=== PATIENT | female | born 1980 | race Caucasian/White ===

== ENCOUNTER 2017-04-02 20:52 | Inpatient (IN) | payer BC ==
[~2017-04-02] VITALS: Ht 172.7 cm; Wt 55.6 kg
[~2017-04-02 20:52] MED LIST: ABILIFY 10MG TA10 MG PO; ACTIGALL 300MG300 MG PO; ALDOMET 250MG250 MG PO; AMLOPIDINE PO; CELEXA 20MG20 MG/TAB PO; HCTZ 25MG25 MG PO; HUMALOG100 U/ML SC; LANTUS100 U/ML SC; LISINOPRIL10 MG PO; MACRODANTIN50 MG PO; MAXZIDE; MOTRIN 600600 MG/TAB PO; NORCO 325 MG-51 TAB PO; NORVASC 5MG5 MG/TAB PO; PERCOCET 325 MG1 TA2 PO; PRENATAL VITAMI1 TA5 PO; PRILOTC PO; SYNTHROID0.1 MG/TAB PO
[2017-04-02] MEDS ORDERED: LEVEMIR FLEX100 U/ML SQ (21:12)
[2017-04-02] MEDS ORDERED: LEXAPRO20 MG PO (21:13)
[2017-04-02 21:36] LABS: BASO % 0.3 % (0.0-2.0); EOS % 0.6 % (0-4.0); GRAN # 4.2 (1.4-6.5); GRAN % 65.9 % (42.2-75.2); HEMOGLOBIN 12.6 g/dl (12.5-16.0); LYMPH # 1.6 (1.2-3.4); LYMPH % 24.4 % (20.0-51.0); MEAN CELL VOLUME 92 fl (80.0-100.0); MEAN CORPUSCULAR HEMOGLOBIN 33 pg (27.0-31.0); MEAN CORPUSCULAR HGB CONC 36 g/dl (33.0-37.0); MEAN PLATELET VOLUME 9.2 fl (7.4-10.4); MONO # 0.5 (0.1-0.6); MONO % 8.2 % (1.7-9.3); PLATELET COUNT 164 K/mm3 (130-400); RED BLOOD COUNT 3.77 M/mm3 (4.10-5.30); REDCELL DISTRIBUTION WIDTH-CV 14.2 % (11.5-14.5); WHITE BLOOD COUNT 6.4 K/mm3 (4.8-10.8)
[2017-04-02 21:42] LABS: ADJUSTED CALCIUM 8.6 mg/dL (8.4-10.2); ALANINE AMINOTRANSFERASE 64 U/L (9-52); ALBUMIN 3.5 gm/dL (3.5-5.0); ALKALINE PHOSPHATASE 418 U/L (50-136); ANION GAP 18 mmol/L (7-16); BILIRUBIN,TOTAL 2.6 mg/dL (0.0-1.0); CALCIUM 8.2 mg/dL (8.4-10.2); CARBON DIOXIDE 30 mmol/L (22-30); CREATININE, serum 0.43 mg/dL (0.52-1.25); GLUCOSE 219 mg/dL (74-106); LIPASE 215 U/L (23-300); MAGNESIUM 1.8 mg/dL (1.6-2.3); SODIUM 130 mmol/L (137-145); TOTAL PROTEIN 6.5 gm/dL (6.4-8.2)
[2017-04-02 21:44] LABS: HEMATOCRIT 34.7 % (37.0-47.0)
[2017-04-02 21:48] LABS: BLOOD UREA NITROGEN < 2 mg/dL (7-17)
[2017-04-02 21:49] LABS: CHLORIDE 82 mmol/L (98-107); POTASSIUM 1.3 mmol/L (3.4-5.0)
[2017-04-02 22:42] LABS: ARTERIAL BLD GAS O2 SATURATION 64.7 % (92-100); ARTERIAL BLD GAS TCO2 CT 32.4; ARTERIAL BLOOD GAS BASE EXCESS 8.1 (-2-2); ARTERIAL BLOOD GAS HCO3 31.2 meq/L (22-26); ARTERIAL BLOOD GAS PHT 7.53 C (7.35-7.45); ARTERIAL BLOOD GAS pH 7.53 (7.35-7.45); OXYHEMOGLOBIN 62.9 %
[2017-04-02 22:47] LABS: ALLEN TEST YES; ALLENS TEST RESULT PASS; ARTERIAL BLOOD GAS PO2 32.6 mmHg (80-100); ARTERIAL BLOOD GAS PO2T 32.6 (80-100); ATS? YES
[2017-04-02 23:30] LABS: PH 7 (5-8); URINE APPEARANCE Clear; URINE BACTERIA None Seen /hpf; URINE BILIRUBIN Negative (NEGATIVE); URINE BLOOD 2+ (NEGATIVE); URINE COLOR Yellow; URINE GLUCOSE Negative (NEGATIVE); URINE KETONE 1+ (NEGATIVE); URINE RBC 0-2 /hpf; URINE UROBILINOGEN Negative (NEGATIVE)
[2017-04-03] VITALS (1077 sets, daily range): BP systolic 107–124; BP diastolic 57–89; PULSE 87–97; TEMP 96.7–97.2; O2SAT 87–100
[2017-04-03 00:02] LABS: INR 1.3 (0.8-3.0); PROTHROMBIN TIME 14.4 SECONDS (9.7-12.8)
[2017-04-03 00:04] LABS: PARTIAL THROMBOPLASTIN TIME 32.1 SECONDS (26.0-37.0)
[2017-04-03 03:47] LABS: ANION GAP 10 mmol/L (7-16); CALCIUM 7.6 mg/dL (8.4-10.2); CARBON DIOXIDE 30 mmol/L (22-30); CHLORIDE 93 mmol/L (98-107); GLUCOSE 194 mg/dL (74-106); SODIUM 133 mmol/L (137-145)
[2017-04-03 03:50] LABS: BLOOD UREA NITROGEN < 2 mg/dL (7-17)
[2017-04-03 03:52] LABS: POTASSIUM 1.7 mmol/L (3.4-5.0)
[2017-04-03 04:58] LABS: AMPHETAMINE URINE NEGATIVE; BARBITURATES URINE NEGATIVE; BENZODIAZEPINES URINE NEGATIVE; BUPRENORPHINE URINE NEGATIVE; METHADONE URINE NEGATIVE; OPIATES URINE POSITIVE; OXYCODONE URINE NEGATIVE; PHENCYCLIDINE URINE NEGATIVE; PROPOXYPHENE URINE NEGATIVE; THC CANNABINOIDS URINE NEGATIVE
[2017-04-03 05:43] LABS: BASO % 0.4 % (0.0-2.0); EOS # 0.1 (0.0-0.7); EOS % 1.3 % (0-4.0); GRAN # 2.8 (1.4-6.5); GRAN % 61.7 % (42.2-75.2); LYMPH # 1.4 (1.2-3.4); LYMPH % 30.4 % (20.0-51.0); MEAN CELL VOLUME 94 fl (80.0-100.0); MEAN CORPUSCULAR HGB CONC 35 g/dl (33.0-37.0); MEAN PLATELET VOLUME 9.8 fl (7.4-10.4); MONO # 0.3 (0.1-0.6); MONO % 5.8 % (1.7-9.3); PLATELET COUNT 121 K/mm3 (130-400); RED BLOOD COUNT 3.48 M/mm3 (4.10-5.30); REDCELL DISTRIBUTION WIDTH-CV 14.8 % (11.5-14.5); WHITE BLOOD COUNT 4.5 K/mm3 (4.8-10.8)
[2017-04-03 05:45] LABS: HEMATOCRIT 32.8 % (37.0-47.0); HEMOGLOBIN 11.6 g/dl (12.5-16.0); MEAN CORPUSCULAR HEMOGLOBIN 33 pg (27.0-31.0)
[2017-04-03 05:55] LABS: ALANINE AMINOTRANSFERASE 63 U/L (9-52); ALBUMIN 3.2 gm/dL (3.5-5.0); ALKALINE PHOSPHATASE 398 U/L (50-136); ANION GAP 13 mmol/L (7-16); BILIRUBIN,TOTAL 2.2 mg/dL (0.0-1.0); CALCIUM 8.3 mg/dL (8.4-10.2); CARBON DIOXIDE 32 mmol/L (22-30); CHLORIDE 91 mmol/L (98-107); CREATININE, serum 0.44 mg/dL (0.52-1.25); GLUCOSE 223 mg/dL (74-106); SODIUM 137 mmol/L (137-145); TOTAL PROTEIN 6.4 gm/dL (6.4-8.2)
[2017-04-03 05:56] LABS: BLOOD UREA NITROGEN < 2 mg/dL (7-17)
[2017-04-03 05:58] LABS: POTASSIUM 1.6 mmol/L (3.4-5.0)
[2017-04-03 06:06] LABS: BILIRUBIN,DIRECT 1.3 mg/dL (0.0-0.4)
[2017-04-03 20:18] LABS: ANION GAP 8 mmol/L (7-16); CALCIUM 7.7 mg/dL (8.4-10.2); CARBON DIOXIDE 33 mmol/L (22-30); CREATININE, serum 0.39 mg/dL (0.52-1.25); GLUCOSE 198 mg/dL (74-106); SODIUM 129 mmol/L (137-145)
[2017-04-03 20:22] LABS: BLOOD UREA NITROGEN < 2 mg/dL (7-17)
[2017-04-03 20:23] LABS: CHLORIDE 88 mmol/L (98-107); POTASSIUM 2.2 mmol/L (3.4-5.0)
[2017-04-04] VITALS (287 sets, daily range): BP systolic 11–155; BP diastolic 59–91; PULSE 70–97; TEMP 97–99; O2SAT 85–100
[2017-04-04 05:45] LABS: ADJUSTED CALCIUM 8.8 mg/dL (8.4-10.2); ALANINE AMINOTRANSFERASE 67 U/L (9-52); ALBUMIN 3.1 gm/dL (3.5-5.0); ALKALINE PHOSPHATASE 360 U/L (50-136); ANION GAP 10 mmol/L (7-16); BILIRUBIN,TOTAL 1.9 mg/dL (0.0-1.0); CALCIUM 8.1 mg/dL (8.4-10.2); CARBON DIOXIDE 34 mmol/L (22-30); CHLORIDE 94 mmol/L (98-107); CREATININE, serum 0.39 mg/dL (0.52-1.25); GLUCOSE 98 mg/dL (74-106); MAGNESIUM 2.4 mg/dL (1.6-2.3); SODIUM 138 mmol/L (137-145); TOTAL PROTEIN 6.4 gm/dL (6.4-8.2)
[2017-04-04 05:47] LABS: BLOOD UREA NITROGEN < 2 mg/dL (7-17); POTASSIUM 2.7 mmol/L (3.4-5.0)
[2017-04-05 03:02] VITALS: BP 110/81; PULSE 92; TEMP 98.7
[2017-04-05 07:16] LABS: ADJUSTED CALCIUM 8.8 mg/dL (8.4-10.2); ALANINE AMINOTRANSFERASE 67 U/L (9-52); ALBUMIN 2.7 gm/dL (3.5-5.0); ALKALINE PHOSPHATASE 330 U/L (50-136); ANION GAP 6 mmol/L (7-16); BILIRUBIN,TOTAL 1.4 mg/dL (0.0-1.0); CALCIUM 7.8 mg/dL (8.4-10.2); CARBON DIOXIDE 31 mmol/L (22-30); CHLORIDE 97 mmol/L (98-107); CREATININE, serum 0.41 mg/dL (0.52-1.25); GLUCOSE 156 mg/dL (74-106); SODIUM 134 mmol/L (137-145); TOTAL PROTEIN 5.8 gm/dL (6.4-8.2)
[2017-04-05 07:21] LABS: BLOOD UREA NITROGEN < 2 mg/dL (7-17)
[2017-04-05 07:22] LABS: POTASSIUM 2.9 mmol/L (3.4-5.0)
[2017-04-05 07:48] LABS: INR 1.2 (0.8-3.0); PROTHROMBIN TIME 13.2 SECONDS (9.7-12.8)
[2017-04-05 09:18] VITALS: BP 103/78; PULSE 89; TEMP 97.7
[2017-04-05 12:10] VITALS: BP 100/78; PULSE 95; TEMP 97.6
[2017-04-05 16:31] VITALS: BP 100/79; PULSE 85; TEMP 98.2
[2017-04-05 20:50] VITALS: BP 109/79; PULSE 98; TEMP 98.5
[2017-04-05 23:01] VITALS: BP 103/74; PULSE 93; TEMP 98.8
[2017-04-06 02:34] VITALS: BP 99/69; PULSE 89; TEMP 98.1
[2017-04-06 07:33] LABS: ADJUSTED CALCIUM 8.9 mg/dL (8.4-10.2); ALBUMIN 2.6 gm/dL (3.5-5.0); BILIRUBIN,TOTAL 1.2 mg/dL (0.0-1.0); CALCIUM 7.8 mg/dL (8.4-10.2); CREATININE, serum 0.41 mg/dL (0.52-1.25); POTASSIUM 3.8 mmol/L (3.4-5.0); TOTAL PROTEIN 5.5 gm/dL (6.4-8.2)
[2017-04-06 08:47] VITALS: BP 101/70; PULSE 88; TEMP 97.8
[2017-04-06 12:46] VITALS: BP 115/84; PULSE 91; TEMP 97.8
[2017-04-06 15:43] LABS: PERITONEAL -POLYMORPHONUCLEAR 11.3 % (0-25); PERITONEAL FLUID RBC 0 /mm3 (0-0)
[2017-04-06 15:46] VITALS: BP 103/74; PULSE 87; TEMP 97.7
[2017-04-06 16:42] LABS: TOTAL IRON BINDING CAPACITY 217 ug/dL (265-497)
[2017-04-06 17:10] LABS: FERRITIN 89 ng/mL (6-137)
[2017-04-06 20:55] VITALS: BP 121/92; PULSE 81; TEMP 97.3
[2017-04-07] VITALS (9 sets, daily range): BP systolic 91–167; BP diastolic 65–98; PULSE 73–92; TEMP 97.4–98.4
[2017-04-07 07:07] LABS: ADJUSTED CALCIUM 9.3 mg/dL (8.4-10.2); ALBUMIN 3.4 gm/dL (3.5-5.0); BILIRUBIN,TOTAL 1.7 mg/dL (0.0-1.0); CALCIUM 8.8 mg/dL (8.4-10.2); CREATININE, serum 0.38 mg/dL (0.52-1.25)
[2017-04-07 07:12] LABS: POTASSIUM 2.9 mmol/L (3.4-5.0)
[2017-04-07 09:31] LABS: MAGNESIUM 1.8 mg/dL (1.6-2.3)
[2017-04-08 00:26] VITALS: BP 100/70; PULSE 88; TEMP 97.7
[2017-04-08 04:19] VITALS: BP 107/78; PULSE 88; TEMP 97.9
[2017-04-08 07:20] LABS: ADJUSTED CALCIUM 9.4 mg/dL (8.4-10.2); BILIRUBIN,TOTAL 1.2 mg/dL (0.0-1.0); CALCIUM 8.6 mg/dL (8.4-10.2); CREATININE, serum 0.43 mg/dL (0.52-1.25); POTASSIUM 3.4 mmol/L (3.4-5.0); TOTAL PROTEIN 6.2 gm/dL (6.4-8.2)
[2017-04-08 08:31] LABS: BASO % 0.4 % (0.0-2.0); EOS # 0.1 (0.0-0.7); EOS % 2.3 % (0-4.0); GRAN # 2.8 (1.4-6.5); GRAN % 57.6 % (42.2-75.2); LYMPH # 1.4 (1.2-3.4); LYMPH % 28.9 % (20.0-51.0); MEAN CELL VOLUME 102 fl (80.0-100.0); MEAN CORPUSCULAR HGB CONC 33 g/dl (33.0-37.0); MEAN PLATELET VOLUME 9.4 fl (7.4-10.4); MONO # 0.5 (0.1-0.6); MONO % 10.6 % (1.7-9.3); PLATELET COUNT 149 K/mm3 (130-400); RED BLOOD COUNT 3.31 M/mm3 (4.10-5.30); REDCELL DISTRIBUTION WIDTH-CV 15.7 % (11.5-14.5); WHITE BLOOD COUNT 4.8 K/mm3 (4.8-10.8)
[2017-04-08 08:32] LABS: HEMATOCRIT 33.8 % (37.0-47.0); HEMOGLOBIN 11.3 g/dl (12.5-16.0); MEAN CORPUSCULAR HEMOGLOBIN 34 pg (27.0-31.0)
[2017-04-08 08:54] VITALS: BP 107/83; PULSE 101; TEMP 98.2
[2017-04-08 10:43] VITALS: BP 110/79; PULSE 84; TEMP 97.7
[2017-04-08 13:30] LABS: ALPHA 1 ANTITRYPSIN TOTAL 213 mg/dL (())
[2017-04-08] MEDS ORDERED: FOLIC ACID 11 MG/TA1 PO (13:45)
[2017-04-08] MEDS ORDERED: LASIX 40MG TABL40 MG PO (13:45)
[2017-04-08] MEDS ORDERED: ALDACTONE 100M100 MG PO (13:45)
[2017-04-08] MEDS ORDERED: LEVSIN0.125 M1 PO (13:46)
[2017-04-08] MEDS ORDERED: THIAMINE 1100 MG/TAB PO (13:46)
[2017-04-08] MEDS ORDERED: MULTI VITAMINS1 TAB PO (13:46)
[2017-04-08] MEDS ORDERED: NAPROSYN 2250 MG/TAB PO (13:49)
[2017-05-12] MEDS ORDERED: LASIX 20MG TABL20 MG PO (15:23)
[2017-05-12] MEDS ORDERED: NOVOLOG FLEX100 U/ML SQ (15:24)
[2017-05-12] MEDS ORDERED: NEURONTIN400 MG/CAP PO (15:29)
[2017-05-12] MEDS ORDERED: CALCIUM CARBON600 M1 PO (15:30)
[2017-05-12] MEDS ORDERED: NEURONTIN600 MG/TAB PO (15:30)
[2017-05-12] MEDS ORDERED: CENA K40 MEQ/15 PO (15:31)
[2017-05-13] MEDS ORDERED: LOMOTIL 0.025 M1 TAB PO (14:21)
== END 2017-04-08 15:46 | disposition home or self-care (01) | DRG 432 ==
LOC: COL.ER 20:52 → ICU 22:58 → MEDICAL 22:58
PROVIDERS: Emergency Medicine; Family Medicine; Internal Medicine Gastroenterology; Nurse Practitioner Family
PROC: 0W9G3ZX Drainage of Peritoneal Cavity, Percutaneous Approach, Diagnostic (ICD-10-PCS; principal; 2017-04-06)
PROC: 0DBE8ZX Excision of Large Intestine, Via Natural or Artificial Opening Endoscopic, Diagnostic (ICD-10-PCS; 2017-04-07)
PROC: 0DBA8ZX Excision of Jejunum, Via Natural or Artificial Opening Endoscopic, Diagnostic (ICD-10-PCS; 2017-04-07 07:30)
DX: K70.11 Alcoholic hepatitis with ascites (principal); E43 Unspecified severe protein-calorie malnutrition; Z68.1 Body mass index [BMI] 19.9 or less, adult; E87.1 Hypo-osmolality and hyponatremia; E87.3 Alkalosis; E87.6 Hypokalemia; I10 Essential (primary) hypertension; K64.0 First degree hemorrhoids; E11.9 Type 2 diabetes mellitus without complications; F17.210 Nicotine dependence, cigarettes, uncomplicated; Z98.84 Bariatric surgery status; F10.20 Alcohol dependence, uncomplicated; Z79.4 Long term (current) use of insulin; K52.9 Noninfective gastroenteritis and colitis, unspecified
CPT/HCPCS: 99223-AI; 99232-AI; 99233-AI; 99239; J1650; J1815; J1885; J1940; J2405; J2704; J3010; J3411; J3475; J3480; J7030; Q9967

== ENCOUNTER → 2017-05-13 | Outpatient (CLI) | payer BC ==
[~2017-05-13] VITALS: Ht 172.7 cm; Wt 53.1 kg
[~2017-05-13] MED LIST changes: +ALDACTONE 100M100 MG PO; +CALCIUM CARBON600 M1 PO; +CENA K40 MEQ/15 PO; +FOLIC ACID 11 MG/TA1 PO; +LASIX 20MG TABL20 MG PO; +LASIX 40MG TABL40 MG PO; +LEVEMIR FLEX100 U/ML SQ; +LEVSIN0.125 M1 PO; +LEXAPRO20 MG PO; +LOMOTIL 0.025 M1 TAB PO; +MULTI VITAMINS1 TAB PO; +NAPROSYN 2250 MG/TAB PO; +NEURONTIN400 MG/CAP PO; +NEURONTIN600 MG/TAB PO; +NOVOLOG FLEX100 U/ML SQ; +THIAMINE 1100 MG/TAB PO
[2017-05-13 14:22] VITALS: BP 107/72; PULSE 108
== END ==
LOC: COL.RAD 13:49
DX: K70.11 Alcoholic hepatitis with ascites (principal)

== ENCOUNTER → 2017-08-10 | Outpatient (CLI) | payer BC ==
[~2017-08-10] MED LIST changes: +CYMBALTA 60MG60 MG PO
== END ==
LOC: COL.RAD 07:30
DX: Z01.812 Encounter for preprocedural laboratory examination (principal); R63.4 Abnormal weight loss; R19.4 Change in bowel habit; R19.7 Diarrhea, unspecified; Z97.5 Presence of (intrauterine) contraceptive device; Z98.84 Bariatric surgery status
CPT/HCPCS: Q9967

== ENCOUNTER 2017-08-16 22:12 | Emergency (ER) | payer BC ==
[~2017-08-16] VITALS: Ht 172.7 cm; Wt 45.2 kg
[~2017-08-16 22:12] MED LIST changes: -CYMBALTA 60MG60 MG PO
[2017-08-16 22:19] VITALS: TEMP 97.5
[2017-08-16 22:51] LABS: BASO % 0.7 % (0.0-2.0); EOS # 0.2 (0.0-0.7); EOS % 3.8 % (0-4.0); GRAN # 2.1 (1.4-6.5); GRAN % 47.2 % (42.2-75.2); HEMOGLOBIN 12.5 g/dl (12.5-16.0); LYMPH # 1.9 (1.2-3.4); LYMPH % 41.2 % (20.0-51.0); MEAN CELL VOLUME 82 fl (80.0-100.0); MEAN CORPUSCULAR HEMOGLOBIN 28 pg (27.0-31.0); MEAN CORPUSCULAR HGB CONC 34 g/dl (33.0-37.0); MEAN PLATELET VOLUME 10.5 fl (7.4-10.4); MONO # 0.3 (0.1-0.6); MONO % 6.9 % (1.7-9.3); PLATELET COUNT 183 K/mm3 (130-400); WHITE BLOOD COUNT 4.5 K/mm3 (4.8-10.8)
[2017-08-16 22:53] LABS: HEMATOCRIT 36.8 % (37.0-47.0)
[2017-08-16 23:02] LABS: ADJUSTED CALCIUM 9.3 mg/dL (8.4-10.2); ALANINE AMINOTRANSFERASE 56 U/L (9-52); ALBUMIN 4.3 gm/dL (3.5-5.0); ALKALINE PHOSPHATASE 165 U/L (50-136); ANION GAP 9 mmol/L (7-16); BILIRUBIN,TOTAL 0.7 mg/dL (0.0-1.0); BLOOD UREA NITROGEN 13 mg/dL (7-17); CALCIUM 9.5 mg/dL (8.4-10.2); CARBON DIOXIDE 25 mmol/L (22-30); CHLORIDE 106 mmol/L (98-107); CREATININE, serum 0.54 mg/dL (0.52-1.25); GLUCOSE 252 mg/dL (74-106); SODIUM 139 mmol/L (137-145); TOTAL PROTEIN 7.2 gm/dL (6.4-8.2)
[2017-08-16 23:03] LABS: C-REACTIVE PROTEIN < 0.5 mg/dL (0.0-0.9)
[2017-08-17] MEDS ORDERED: NORCO 325 MG-51 TAB PO (00:44)
[2017-08-17] MEDS ORDERED: CYMBALTA 60MG60 MG PO (00:45)
[2017-08-17 03:07] VITALS: BP 120/92; PULSE 84
== END 2017-08-17 03:07 | disposition home or self-care (01) ==
LOC: COL.ER 22:12
PROVIDERS: Nurse Practitioner
DX: R19.7 Diarrhea, unspecified (principal); E11.9 Type 2 diabetes mellitus without complications; F32.9 Major depressive disorder, single episode, unspecified; F17.210 Nicotine dependence, cigarettes, uncomplicated; Z79.4 Long term (current) use of insulin; Z98.84 Bariatric surgery status
CPT/HCPCS: J2060; J2405; J7030

== ENCOUNTER → 2017-08-16 | Outpatient (CLI) | payer BC | LOC: COL.LAB 16:21 | DX: R19.7 Diarrhea, unspecified (principal) ==

== ENCOUNTER 2018-04-03 17:52 | Inpatient (IN) | payer BC ==
[~2018-04-03] VITALS: Ht 172.7 cm; Wt 65.5 kg
[~2018-04-03 17:52] MED LIST changes: +CYMBALTA 60MG60 MG PO
[2018-04-03] MEDS ORDERED: LASIX 40MG TABL40 MG (18:45)
[2018-04-03] MEDS ORDERED: ALDACTONE 25MG25 M1 PO (18:45)
[2018-04-03 18:54] LABS: COLLECTION METHOD CLEAN CATCH
[2018-04-03 19:07] LABS: MUCOUS Present /lpf; PH 5 (5-8); SQUAMOUS EPITHELIAL None Seen /hpf; URINE APPEARANCE Turbid; URINE BACTERIA None Seen /hpf; URINE BILIRUBIN Negative (NEGATIVE); URINE BLOOD 2+ (NEGATIVE); URINE COLOR Red; URINE GLUCOSE 1+ (NEGATIVE); URINE KETONE Negative (NEGATIVE); URINE LEUKOCYTE ESTERASE Negative (NEGATIVE); URINE NITRATE Positive (NEGATIVE); URINE PROTEIN(semi-quant) 3+ (NEGATIVE); URINE RBC >50 /hpf; URINE UROBILINOGEN >=4.0 mg/dL (NEGATIVE)
[2018-04-03 19:16] LABS: BASO % 0.4 % (0.0-2.0); EOS # 0.1 (0.0-0.7); EOS % 1.9 % (0-4.0); GRAN # 2.9 (1.4-6.5); GRAN % 54.8 % (42.2-75.2); HEMATOCRIT 28.4 % (37.0-47.0); HEMOGLOBIN 9.8 g/dl (12.5-16.0); LYMPH # 1.8 (1.2-3.4); LYMPH % 33.8 % (20.0-51.0); MEAN CELL VOLUME 91 fl (80.0-100.0); MEAN CORPUSCULAR HEMOGLOBIN 31 pg (27.0-31.0); MEAN CORPUSCULAR HGB CONC 35 g/dl (33.0-37.0); MEAN PLATELET VOLUME 9.3 fl (7.4-10.4); MONO # 0.5 (0.1-0.6); MONO % 8.7 % (1.7-9.3); PLATELET COUNT 139 K/mm3 (130-400); RED BLOOD COUNT 3.13 M/mm3 (4.10-5.30); REDCELL DISTRIBUTION WIDTH-CV 14.6 % (11.5-14.5)
[2018-04-03 19:25] LABS: ALANINE AMINOTRANSFERASE 66 U/L (9-52); ALBUMIN 2.2 gm/dL (3.5-5.0); ALKALINE PHOSPHATASE 110 U/L (50-136); ANION GAP 8 mmol/L (7-16); AST,SGOT 56 U/L (15-37); BILIRUBIN,TOTAL 0.3 mg/dL (0.0-1.0); BLOOD UREA NITROGEN 5 mg/dL (7-17); CALCIUM 7.9 mg/dL (8.4-10.2); CARBON DIOXIDE 19 mmol/L (22-30); CHLORIDE 112 mmol/L (98-107); CREATININE, serum 0.63 mg/dL (0.52-1.25); GLUCOSE 143 mg/dL (74-106); POTASSIUM 3.2 mmol/L (3.4-5.0); SODIUM 139 mmol/L (137-145); TOTAL PROTEIN 4.6 gm/dL (6.4-8.2)
[2018-04-03 19:26] LABS: LIPASE < 10 U/L (23-300)
[2018-04-03 19:29] LABS: MAGNESIUM 1.6 mg/dL (1.6-2.3)
[2018-04-03 20:00] LABS: INR 1.1 (0.8-3.0); PROTHROMBIN TIME 12.7 SECONDS (9.7-12.8)
[2018-04-03 20:07] LABS: TSH w REFLEX 1.95 uIU/mL (0.465-4.680)
[2018-04-03] MEDS ORDERED: LASIX 20MG TABL20 MG PO ×2 (22:23→23:00)
[2018-04-03 22:38] VITALS: BP 103/70; PULSE 79; TEMP 98.1
[2018-04-03] MEDS ORDERED: ZINC SULFATE 111 TAB PO (23:03)
[2018-04-03] MEDS ORDERED: MAG-OX 400400 MG/TAB PO (23:03)
[2018-04-03] MEDS ORDERED: KLONOPIN 1MG1 MG PO (23:05)
[2018-04-03] MEDS ORDERED: NEURONTIN300 MG/CAP PO (23:06)
[2018-04-04] VITALS (7 sets, daily range): BP systolic 91–107; BP diastolic 61–73; PULSE 53–97; TEMP 96.8–98.1
[2018-04-04 06:40] LABS: BASO % 0.7 % (0.0-2.0); EOS # 0.2 (0.0-0.7); EOS % 3.5 % (0-4.0); GRAN # 2.2 (1.4-6.5); GRAN % 48.2 % (42.2-75.2); HEMOGLOBIN 10.2 g/dl (12.5-16.0); LYMPH # 1.9 (1.2-3.4); LYMPH % 41.9 % (20.0-51.0); MEAN CELL VOLUME 93 fl (80.0-100.0); MEAN CORPUSCULAR HEMOGLOBIN 31 pg (27.0-31.0); MEAN CORPUSCULAR HGB CONC 33 g/dl (33.0-37.0); MEAN PLATELET VOLUME 9.8 fl (7.4-10.4); MONO # 0.3 (0.1-0.6); MONO % 5.5 % (1.7-9.3); PLATELET COUNT 158 K/mm3 (130-400); RED BLOOD COUNT 3.32 M/mm3 (4.10-5.30); REDCELL DISTRIBUTION WIDTH-CV 14.6 % (11.5-14.5)
[2018-04-04 06:45] LABS: HEMATOCRIT 30.7 % (37.0-47.0)
[2018-04-04 06:52] LABS: CALCIUM 8.1 mg/dL (8.4-10.2); CREATININE, serum 0.65 mg/dL (0.52-1.25); POTASSIUM 3.8 mmol/L (3.4-5.0)
[2018-04-05 00:25] VITALS: BP 83/51; PULSE 51; TEMP 97.6
[2018-04-05 05:27] VITALS: BP 100/61; PULSE 84; TEMP 97.9
[2018-04-05 07:41] VITALS: BP 107/74; PULSE 88; TEMP 97.6
[2018-04-05 08:11] LABS: BASO % 0.5 % (0.0-2.0); EOS # 0.2 (0.0-0.7); EOS % 2.7 % (0-4.0); GRAN # 3.3 (1.4-6.5); GRAN % 59.1 % (42.2-75.2); HEMATOCRIT 31.1 % (37.0-47.0); HEMOGLOBIN 10.3 g/dl (12.5-16.0); LYMPH # 1.8 (1.2-3.4); MEAN CELL VOLUME 93 fl (80.0-100.0); MEAN CORPUSCULAR HEMOGLOBIN 31 pg (27.0-31.0); MEAN CORPUSCULAR HGB CONC 33 g/dl (33.0-37.0); MEAN PLATELET VOLUME 9.8 fl (7.4-10.4); MONO # 0.4 (0.1-0.6); MONO % 6.2 % (1.7-9.3); PLATELET COUNT 179 K/mm3 (130-400); RED BLOOD COUNT 3.36 M/mm3 (4.10-5.30); REDCELL DISTRIBUTION WIDTH-CV 14.7 % (11.5-14.5)
[2018-04-05 08:29] LABS: ALBUMIN 2.6 gm/dL (3.5-5.0); BILIRUBIN,TOTAL 0.3 mg/dL (0.0-1.0); CALCIUM 8.2 mg/dL (8.4-10.2); CREATININE, serum 0.64 mg/dL (0.52-1.25); POTASSIUM 3.8 mmol/L (3.4-5.0); TOTAL PROTEIN 5.2 gm/dL (6.4-8.2)
[2018-04-05] MEDS ORDERED: OMNICEF 300MG300 MG PO (09:58)
[2018-04-05] MEDS ORDERED: PANCREAZE 437501 ECC PO (09:59)
[2018-04-05] MEDS ORDERED: LASIX 20MG TABL20 MG PO (09:59)
[2018-04-05] MEDS ORDERED: NORCO 325 MG-51 TAB PO (10:31)
[2018-04-05] MEDS ORDERED: LOMOTIL 0.025 M1 TAB PO (11:47)
== END 2018-04-05 12:47 | disposition home or self-care (01) | DRG 442 ==
LOC: COL.ER 17:52 → MEDICAL 21:17
PROVIDERS: Emergency Medicine; Nurse Practitioner Family; Physician Assistant
DX: K76.6 Portal hypertension (principal); N39.0 Urinary tract infection, site not specified; E87.2 Acidosis; K86.0 Alcohol-induced chronic pancreatitis; E46 Unspecified protein-calorie malnutrition; K90.9 Intestinal malabsorption, unspecified; K70.31 Alcoholic cirrhosis of liver with ascites; E11.649 Type 2 diabetes mellitus with hypoglycemia without coma; Z79.4 Long term (current) use of insulin; I10 Essential (primary) hypertension; F10.10 Alcohol abuse, uncomplicated; Z98.84 Bariatric surgery status; Z87.891 Personal history of nicotine dependence; E87.6 Hypokalemia; B96.20 Unspecified Escherichia coli [E. coli] as the cause of diseases classified elsewhere
CPT/HCPCS: 99222-AI; 99239; G0378; G8978-GP; G8979-GP; G8987-GO; G8988-GO; J0696; J1170; J1644; J1940; J3010; J3480; J7030

== ENCOUNTER → 2018-06-20 | Outpatient (CLI) | payer BC ==
[~2018-06-20] VITALS: Ht 172.7 cm; Wt 85.2 kg
[~2018-06-20] MED LIST changes: +ALDACTONE 25MG25 M1 PO; +KLONOPIN 1MG1 MG PO; +LASIX 40MG TABL40 MG; +MAG-OX 400400 MG/TAB PO; +MULTIPLE VITAMI1 CAP PO; +NEURONTIN300 MG/CAP PO; +OMNICEF 300MG300 MG PO; +PANCREAZE 437501 ECC PO; +ZINC SULFATE 111 TAB PO
[2018-06-20 14:43] VITALS: BP 115/85; PULSE 74
[2018-06-20 15:55] VITALS: BP 125/86; PULSE 85
[2018-06-20 16:32] LABS: PERITONEAL -POLYMORPHONUCLEAR 8.8 % (0-25); PERITONEAL FLUID RBC 0 /mm3 (0-0)
== END ==
LOC: COL.RAD 14:28
PROVIDERS: Family Medicine
DX: R18.8 Other ascites (principal)

== ENCOUNTER 2018-06-24 08:20 | Outpatient (RCR) | payer BC ==
[~2018-06-24] VITALS: Ht 172.7 cm; Wt 79.3 kg
[~2018-06-24 08:20] MED LIST changes: +CEPHALEXIN500 M1 PO
[2018-06-24 08:52] LABS: HEMOGLOBIN 10.4 g/dl (12.5-16.0); MEAN CELL VOLUME 96 fl (80.0-100.0); MEAN CORPUSCULAR HEMOGLOBIN 31 pg (27.0-31.0); MEAN CORPUSCULAR HGB CONC 32 g/dl (33.0-37.0); MEAN PLATELET VOLUME 9.3 fl (7.4-10.4); PLATELET COUNT 189 K/mm3 (130-400); RED BLOOD COUNT 3.35 M/mm3 (4.10-5.30); REDCELL DISTRIBUTION WIDTH-CV 14.4 % (11.5-14.5)
[2018-06-24 08:55] LABS: HEMATOCRIT 32.1 % (37.0-47.0)
[2018-06-24 08:57] VITALS: BP 118/84; PULSE 84; TEMP 97.4
[2018-06-24 09:03] LABS: ALBUMIN 2.5 gm/dL (3.5-5.0); BILIRUBIN,TOTAL 0.4 mg/dL (0.0-1.0); CALCIUM 7.8 mg/dL (8.4-10.2); CREATININE, serum 0.57 mg/dL (0.52-1.25); POTASSIUM 3.5 mmol/L (3.4-5.0); TOTAL PROTEIN 5.3 gm/dL (6.4-8.2)
== END 2018-06-24 13:00 | disposition home or self-care (01) ==
LOC: EUO 08:20
PROVIDERS: Emergency Medicine
DX: R60.9 Edema, unspecified (principal)
CPT/HCPCS: J1170; J1940; J3480

== ENCOUNTER → 2018-08-08 | Outpatient (CLI) | payer BC ==
[~2018-08-08] VITALS: Ht 172.7 cm; Wt 81.1 kg
[~2018-08-08] MED LIST changes: +DEMADEX 20MG20 M1 PO
[2018-08-08 08:32] VITALS: BP 126/89; PULSE 79
[2018-08-08 10:18] VITALS: BP 143/98; PULSE 63
== END ==
LOC: COL.RAD 08:11
DX: R18.8 Other ascites (principal)
CPT/HCPCS: 19804

== ENCOUNTER 2018-09-28 15:47 | Emergency (ER) | payer BC ==
[~2018-09-28] VITALS: Ht 172.7 cm; Wt 50.0 kg
[2018-09-28 16:43] LABS: BASO % 0.5 % (0.0-2.0); EOS # 0.6 (0.0-0.7); EOS % 6.9 % (0-4.0); GRAN # 6.1 (1.4-6.5); GRAN % 68.4 % (42.2-75.2); LYMPH # 1.5 (1.2-3.4); LYMPH % 16.4 % (20.0-51.0); MEAN CELL VOLUME 97 fl (80.0-100.0); MEAN CORPUSCULAR HEMOGLOBIN 32 pg (27.0-31.0); MEAN CORPUSCULAR HGB CONC 33 g/dl (33.0-37.0); MEAN PLATELET VOLUME 10.1 fl (7.4-10.4); MONO # 0.7 (0.1-0.6); MONO % 7.5 % (1.7-9.3); PLATELET COUNT 270 K/mm3 (130-400); RED BLOOD COUNT 3.48 M/mm3 (4.10-5.30); REDCELL DISTRIBUTION WIDTH-CV 15.9 % (11.5-14.5)
[2018-09-28 16:44] LABS: HEMATOCRIT 33.8 % (37.0-47.0)
[2018-09-28 16:53] LABS: ALBUMIN 3.9 gm/dL (3.5-5.0); BILIRUBIN,TOTAL 0.6 mg/dL (0.0-1.0); CALCIUM 9.1 mg/dL (8.4-10.2); CREATININE, serum 0.61 mg/dL (0.52-1.25); TOTAL PROTEIN 7.2 gm/dL (6.4-8.2)
[2018-09-28] MEDS ORDERED: DILAUDID 4MG TAB4 MG PO (19:02)
[2018-09-28] MEDS ORDERED: AMOXICILLIN 8751 TAB PO (19:03)
[2018-09-28 19:35] VITALS: BP 103/76; PULSE 84; TEMP 98.6
== END 2018-09-28 19:35 | disposition home or self-care (01) ==
LOC: COL.ER 15:47
PROVIDERS: Emergency Medicine
DX: R10.13 Epigastric pain (principal); Z79.4 Long term (current) use of insulin
CPT/HCPCS: J0780; J1170; J1200; J2405; J7030; Q9967

== ENCOUNTER 2019-04-02 12:26 | Emergency (ER) | payer BC ==
[~2019-04-02] VITALS: Ht 172.7 cm; Wt 54.3 kg
[~2019-04-02 12:26] MED LIST changes: +AMOXICILLIN 8751 TAB PO; +DILAUDID 4MG TAB4 MG PO
[2019-04-02 12:34] VITALS: TEMP 98.7
[2019-04-02 14:39] LABS: ALBUMIN 3.2 gm/dL (3.5-5.0); CALCIUM 8.4 mg/dL (8.4-10.2); CREATININE, serum 0.38 (0.52-1.25); POTASSIUM 3.4 mmol/L (3.4-5.0); TOTAL PROTEIN 5.8 gm/dL (6.4-8.2)
[2019-04-02 14:51] LABS: BASO % 0.4 % (0.0-2.0); EOS # 0.1 (0.0-0.7); EOS % 1.2 % (0-4.0); GRAN # 6.5 (1.4-6.5); GRAN % 71.8 % (42.2-75.2); HEMOGLOBIN 11.2 g/dl (12.5-16.0); LYMPH # 1.7 (1.2-3.4); LYMPH % 19.2 % (20.0-51.0); MEAN CELL VOLUME 91 fl (80.0-100.0); MEAN CORPUSCULAR HEMOGLOBIN 32 pg (27.0-31.0); MEAN CORPUSCULAR HGB CONC 35 g/dl (33.0-37.0); MEAN PLATELET VOLUME 10.4 fl (7.4-10.4); MONO # 0.6 (0.1-0.6); MONO % 7.1 % (1.7-9.3); PLATELET COUNT 147 K/mm3 (130-400); RED BLOOD COUNT 3.56 M/mm3 (4.10-5.30); REDCELL DISTRIBUTION WIDTH-CV 13.8 % (11.5-14.5)
[2019-04-02 14:53] LABS: HEMATOCRIT 32.4 % (37.0-47.0)
[2019-04-02] MEDS ORDERED: ZITHROMAX Z PA250 MG PO (14:55)
[2019-04-02 16:00] VITALS: BP 118/77; PULSE 95
== END 2019-04-02 16:10 | disposition home or self-care (01) ==
LOC: COL.ER 12:26
PROVIDERS: Family Medicine
DX: J20.9 Acute bronchitis, unspecified (principal); E86.0 Dehydration; E11.9 Type 2 diabetes mellitus without complications; F10.20 Alcohol dependence, uncomplicated; F17.210 Nicotine dependence, cigarettes, uncomplicated; Z98.84 Bariatric surgery status; Z79.4 Long term (current) use of insulin
CPT/HCPCS: A4216; J0696; J7030; J7120

== ENCOUNTER 2021-04-23 10:55 | Outpatient (CLI) | payer BC ==
[~2021-04-23] VITALS: Ht 172.7 cm; Wt 45.0 kg
[~2021-04-23 10:55] MED LIST changes: +ZITHROMAX Z PA250 MG PO
[2021-04-23 11:20] VITALS: BP 105/77; PULSE 102; TEMP 97.6
[2021-04-23 15:28] VITALS: BP 105/77; PULSE 102; TEMP 97.6
== END 2021-04-23 13:15 | disposition home or self-care (01) ==
LOC: EUO 10:55
DX: E86.0 Dehydration (principal); Z98.890 Other specified postprocedural states
CPT/HCPCS: J7030

== ENCOUNTER → 2021-09-01 | Outpatient (CLI) | payer BC ==
[~2021-09-01] VITALS: Ht 172.7 cm; Wt 50.6 kg
[~2021-09-01] MED LIST changes: +ALDACTONE50 MG PO; +BUMEX 1MG TA1 MG/TA1 PO; +COMPAZINE 110 MG/TAB PO; +LANTUS100 U/ML SQ; +MYCAMINE100 MG IV; +NATURAL IRON65 MG PO; +ONE-A-DAY ESSE1 EACH PO; +ROXICODONE 55 MG/TAB PO; +VITAMIN A10k PO; +VITAMIN D 50,1.25 MG PO; +VITAMIND3 5000 PO; +ZOFRAN 4MG T4 MG/TAB PO
[2021-09-01 11:56] VITALS: BP 176/110; PULSE 74; TEMP 97.6
== END ==
LOC: EUO 10:46
DX: Z45.2 Encounter for adjustment and management of vascular access device (principal); B44.9 Aspergillosis, unspecified
CPT/HCPCS: C1751

== ENCOUNTER → 2021-09-05 | Outpatient (CLI) | payer BC ==
[~2021-09-05] VITALS: Ht 172.7 cm; Wt 52.1 kg
[~2021-09-05] MED LIST changes: +ZOLOFT 50MG50 MG PO
[2021-09-05 12:01] VITALS: BP 104/80; PULSE 94; TEMP 97.4
[2021-09-05 13:00] VITALS: BP 148/100; PULSE 94
== END ==
LOC: COL.RAD 11:33
DX: K70.31 Alcoholic cirrhosis of liver with ascites (principal)
CPT/HCPCS: 19804

== ENCOUNTER → 2021-09-29 | Outpatient (CLI) | payer BC ==
[~2021-09-29] VITALS: Ht 172.7 cm; Wt 58.4 kg
[2021-09-29 12:00] VITALS: BP 124/87; PULSE 85; TEMP 97.3
[2021-09-29 13:05] VITALS: BP 122/89; PULSE 82
== END ==
LOC: COL.RAD 11:36
DX: K70.31 Alcoholic cirrhosis of liver with ascites (principal)
CPT/HCPCS: 19804

== ENCOUNTER → 2022-01-20 | Outpatient (CLI) | payer BC, MEDICAID ==
[~2022-01-20] MED LIST changes: +ANIMAL SHAPES1 CT2 PO; +HUMULIN N 10100 U/ML SQ; +HUMULIN R 10100 U/ML SQ; +LUTEIN20 M1 PO; +LYRICA 25MG CAP25 MG PO
== END ==
LOC: COL.RAD 13:51
DX: R91.8 Other nonspecific abnormal finding of lung field (principal); J47.9 Bronchiectasis, uncomplicated; J40 Bronchitis, not specified as acute or chronic; R18.8 Other ascites; Z98.890 Other specified postprocedural states; J98.4 Other disorders of lung; Z97.8 Presence of other specified devices

== ENCOUNTER → 2022-01-21 | Outpatient (CLI) | payer BC ==
[~2022-01-21] VITALS: Ht 172.7 cm; Wt 58.6 kg
[2022-01-21 06:55] VITALS: BP 111/69; PULSE 88; TEMP 98.2
--- NOTE | 2022-01-21 13:00 | NUR ---
PT was transferred to express unit for possible albumin infusion after paracentesis today. Albumin order was different from what pt was expecting. I spoke with Jeanne RN at Dr. Hobson's office, and followed up with Reggie CAMARA from [facility]. Updated order for albumin infusion for large volume paracentesis > 5 liters was received. Pt had <5000 cc removed today and did not receive any albumin today. Pt did c/o low blood sugar upon her arrival to express however, and checked her own sugar which was in 50's. Pt did ask this RN to assist her with a glucagon injection, which I did from pt's own prescribed glucagon kit. 1 mg glucagon was injected subcutaneously into abd. In the time pt was in express, her blood sugar had risen to 80's and pt was feeling better. I escorted pt to exit to her mom's vehicle by wheelchair.
== END ==
LOC: COL.RAD 06:31
DX: R18.8 Other ascites (principal)
CPT/HCPCS: 19804

== ENCOUNTER 2022-01-28 08:25 | Outpatient (CLI) | payer BC, MEDICAID ==
--- NOTE | 2022-01-26 08:11 | NUR ---
LMOM WITH INSTRUCTIONS AND CALL BACK NUMBER
[~2022-01-28] VITALS: Ht 172.7 cm; Wt 63.2 kg
[~2022-01-28 08:25] MED LIST changes: -ANIMAL SHAPES1 CT2 PO; -LUTEIN20 M1 PO
[2022-01-28] MEDS ORDERED: ANIMAL SHAPES1 CT2 PO (08:39)
[2022-01-28 08:42] VITALS: BP 105/74; PULSE 87; TEMP 97.5
[2022-02-13] MEDS ORDERED: DEMADEX 20MG20 M1 PO (12:59)
== END 2022-01-28 18:00 ==
LOC: COL.RAD 08:25
DX: R18.8 Other ascites (principal)

== ENCOUNTER 2022-02-04 08:46 | Outpatient (CLI) | payer BC ==
[~2022-02-04] VITALS: Ht 172.7 cm; Wt 64.7 kg
[~2022-02-04 08:46] MED LIST changes: +ANIMAL SHAPES1 CT2 PO
[2022-02-04] MEDS ORDERED: LUTEIN20 M1 PO (09:06)
[2022-02-04 09:07] VITALS: BP 101/71; PULSE 84; TEMP 97.7
[2022-02-04 09:55] VITALS: BP 116/77; PULSE 76
[2022-02-13] MEDS ORDERED: DEMADEX 20MG20 M1 PO (12:59)
== END 2022-02-04 12:10 ==
LOC: COL.RAD 08:46
DX: R18.8 Other ascites (principal)
CPT/HCPCS: 19804

== ENCOUNTER → 2022-02-13 | Outpatient (CLI) | payer BC, MEDICAID ==
[~2022-02-13] VITALS: Ht 172.7 cm; Wt 67.1 kg
[~2022-02-13] MED LIST changes: +LUTEIN20 M1 PO
[2022-02-13 12:59] VITALS: BP 114/83; PULSE 73; TEMP 97.7
[2022-02-13 14:00] VITALS: BP 100/67; PULSE 71
== END ==
LOC: COL.RAD 12:17
DX: R18.8 Other ascites (principal)
CPT/HCPCS: 19804

== ENCOUNTER → 2022-02-18 | Outpatient (CLI) | payer BC, MEDICAID ==
[~2022-02-18] VITALS: Ht 172.7 cm; Wt 66.0 kg
[~2022-02-18] MED LIST changes: +SOAANZ40 MG PO
[2022-02-18 08:30] VITALS: BP 112/76; PULSE 85; TEMP 98.2
--- NOTE | 2022-02-18 08:50 | NUR ---
pt does not need to be drained. Pt out to car per wheelchair accompanied by father.
== END ==
LOC: COL.RAD 07:56
DX: R18.8 Other ascites (principal)

== ENCOUNTER → 2022-02-25 | Outpatient (CLI) | payer BC, MEDICAID ==
[~2022-02-25] VITALS: Ht 172.7 cm; Wt 64.5 kg
[2022-02-25 09:15] VITALS: BP 130/87; PULSE 78; TEMP 98.3
[2022-02-25 10:05] VITALS: BP 108/73; PULSE 81
== END ==
LOC: COL.RAD 02-18 12:00
DX: R18.8 Other ascites (principal)
CPT/HCPCS: 19804

== ENCOUNTER → 2022-03-13 | Outpatient (CLI) | payer BC, MEDICAID ==
[~2022-03-13] VITALS: Ht 172.7 cm; Wt 63.6 kg
[2022-03-13 12:52] VITALS: BP 102/70; PULSE 88; TEMP 98.2
[2022-03-13 13:45] VITALS: BP 102/70; PULSE 77
== END ==
LOC: COL.RAD 12:00
DX: R18.8 Other ascites (principal)
CPT/HCPCS: 19804

== ENCOUNTER → 2022-04-13 | Outpatient (CLI) | payer BC, MEDICAID ==
[~2022-04-13] VITALS: Ht 172.7 cm; Wt 57.9 kg
[2022-04-13 12:04] VITALS: BP 126/87; PULSE 86; TEMP 98.2
--- NOTE | 2022-04-13 13:00 | NUR ---
PT WAS DISCHARGED BY ULTRASOUND DUE TO NOT ENOUGH FLUID TO REMOVE.
== END ==
LOC: COL.RAD 04-10 09:00
DX: R18.8 Other ascites (principal)

== ENCOUNTER → 2022-04-23 | Outpatient (CLI) | payer BC | LOC: COL.RAD 09:23 | DX: R91.8 Other nonspecific abnormal finding of lung field (principal); B44.9 Aspergillosis, unspecified ==

== ENCOUNTER → 2022-05-08 | Outpatient (CLI) | payer BC, MEDICAID | LOC: COL.RAD 05-07 07:30 | DX: K80.20 Calculus of gallbladder without cholecystitis without obstruction (principal) ==

== ENCOUNTER → 2022-07-29 | Outpatient (CLI) | payer MEDICAID | LOC: COL.RAD 10:27 | DX: R91.8 Other nonspecific abnormal finding of lung field (principal); B44.9 Aspergillosis, unspecified ==

== ENCOUNTER → 2022-10-30 | Outpatient (CLI) | payer MEDICAID ==
[~2022-10-30] MED LIST changes: +D3-5050000 IU PO; +FERROCITE324 MG PO; +GLUCAGON EMERGEN1 M1 SQ; +OSCAL 500 TAB500 MG PO; +OXAYDO7.5 MG PO; +OXYCODONE H5 MG/5 ML PO; +PROAMATINE 5MG T5 MG PO; +SODIUM BICARBO650 MG PO; +[UNRECOGNIZED DRUG - MIXTURE]
== END ==
LOC: COL.RAD 08:10
DX: R91.8 Other nonspecific abnormal finding of lung field (principal)

== ENCOUNTER → 2023-09-15 | Outpatient (CLI) | payer MEDICAID ==
[~2023-09-15] MED LIST changes: -ANIMAL SHAPES1 CT2 PO; +ATARAX 25MG25 MG/TAB PO; +BAQSIMI3 MG NS; +DAZIDOX10 MG PO; -FERROCITE324 MG PO; +FERROUS GL325 MG/TAB PO; +ILOTYCIN5 MG/GM OP; +IMODIUM 2MG CAPS2 MG PO; +INSULIN LI100 UNIT/2 SQ; +LANTUS SOLOS100 U/ML SQ; -LYRICA 25MG CAP25 MG PO; +LYRICA 75MG CAP75 MG PO; +NORVASC2.5 MG PO; +NOVOLIN N100 UNIT/1 SQ; +NOVOLIN R100 U/ML IV; +PAMELOR 25MG25 MG PO; +PROAIR HFA0.09 MG/AC IH; +SERUM TEARS OU; +TPN; +ZOFRAN ODT4 MG PO; +ZOLOFT 100MG100 MG PO; -ZOLOFT 50MG50 MG PO
== END ==
LOC: COL.RAD 09:14
DX: K82.8 Other specified diseases of gallbladder (principal); J90 Pleural effusion, not elsewhere classified; K70.31 Alcoholic cirrhosis of liver with ascites; K76.82 Hepatic encephalopathy

== ENCOUNTER → 2023-09-30 | Outpatient (CLI) | payer MEDICAID ==
[~2023-09-30] VITALS: Ht 170.2 cm; Wt 79.6 kg
[2023-09-30 07:50] VITALS: BP 160/98; PULSE 87; TEMP 97.4
[2023-09-30 09:30] VITALS: BP 144/86; PULSE 82
== END ==
LOC: COL.RAD 07:34
DX: Z48.813 Encounter for surgical aftercare following surgery on the respiratory system (principal)

== ENCOUNTER → 2023-10-27 | Outpatient (CLI) | payer MEDICAID ==
[~2023-10-27] VITALS: Ht 170.2 cm; Wt 55.0 kg
[~2023-10-27] MED LIST changes: +BUMEX2 MG PO
[2023-10-27 11:07] VITALS: BP 114/78; PULSE 93; TEMP 98
[2023-10-27 12:00] VITALS: BP 140/80; PULSE 92
== END ==
LOC: COL.RAD 10:30
DX: J90 Pleural effusion, not elsewhere classified (principal); R91.8 Other nonspecific abnormal finding of lung field; Z98.890 Other specified postprocedural states

== ENCOUNTER → 2023-11-17 | Outpatient (CLI) | payer MEDICAID | LOC: COL.RAD 06:53 | DX: J92.9 Pleural plaque without asbestos (principal); J86.9 Pyothorax without fistula; R91.1 Solitary pulmonary nodule; B44.9 Aspergillosis, unspecified ==

== ENCOUNTER 2023-11-22 21:40 | Inpatient (IN) | payer MEDICAID ==
[~2023-11-22] VITALS: Ht 172.7 cm; Wt 62.9 kg
[2023-11-22] MEDS ORDERED: NS 500 ML IV ONE (22:15)
[2023-11-22 22:20] LABS: BASO % 0.2 % (0.0-2.0); EOS % 0.3 % (0.0-4.0); GRAN # 9.3 K/mm3 (1.4-6.5); GRAN % 86.2 % (42.2-75.2); LYMPH # 0.6 K/mm3 (1.2-3.4); LYMPH % 5.6 % (20.0-51.0); MEAN CELL VOLUME 88 fl (80.0-100.0); MEAN CORPUSCULAR HGB CONC 30 g/dl (33.0-37.0); MEAN PLATELET VOLUME 11.3 fl (7.4-10.4); MONO # 0.8 K/mm3 (0.1-0.6); MONO % 7.1 % (1.7-9.3); PLATELET COUNT 323 K/mm3 (130-400); RED BLOOD COUNT 3.57 M/mm3 (4.10-5.30)
[2023-11-22 22:22] LABS: HEMATOCRIT 31.3 % (37.0-47.0); HEMOGLOBIN 9.5 g/dl (12.5-16.0); MEAN CORPUSCULAR HEMOGLOBIN 27 pg (27-31)
[2023-11-22 22:31] LABS: ALBUMIN 2.8 gm/dL (3.5-5.0); BILIRUBIN,TOTAL 0.7 mg/dL (0.2-1.2); CALCIUM 9.2 mg/dL (8.4-10.2); CREATININE, serum 1.4 mg/dL (0.57-1.11); TOTAL PROTEIN 7.1 gm/dL (6.2-8.1)
[2023-11-22 22:36] LABS: POTASSIUM 6.8 mmol/L (3.5-4.5)
[2023-11-22] MEDS ORDERED: Insulin Aspart (NovoLOG) IV ONE (23:15)
[2023-11-22] MEDS ORDERED: Sodium Zirconium Cyclosilicate for Oral Susp 10 GM PACKET PO ONE (23:15)
[2023-11-22] MEDS ORDERED: Dextrose 50% Water 25 GM/50 ML SYRINGE IV ONE (23:15)
[2023-11-22] MEDS ORDERED: Calcium Chloride 1,000 MG (13.6 mEq)/10 ML SYRINGE IV ONE (23:15)
[2023-11-23] VITALS (356 sets, daily range): BP systolic 110–132; BP diastolic 69–81; PULSE 76–91; TEMP 97.7–98.4; O2SAT 70–100
[2023-11-23] MEDS ORDERED: BAQSIMI3 MG NS (02:07)
[2023-11-23] MEDS ORDERED: FERRO-TIME325 MG PO (02:09)
[2023-11-23] MEDS ORDERED: ERGOCALCIFER50000 IU PO (02:09)
[2023-11-23] MEDS ORDERED: ALDACTONE 100M100 MG PO (02:10)
[2023-11-23] MEDS ORDERED: MUCINEX 60600 MG/TA1 PO (02:11)
[2023-11-23] MEDS ORDERED: INSHUMULINR SQ (02:14)
[2023-11-23] MEDS ORDERED: SYNTHROID0.1 MG/TAB PO (02:15)
[2023-11-23] MEDS ORDERED: oxyCODONE 5 MG TAB PO PRN (02:30)
[2023-11-23 03:34] LABS: CALCIUM 9.4 mg/dL (8.4-10.2); CREATININE, serum 1.31 mg/dL (0.57-1.11); MAGNESIUM 4.1 mg/dL (1.6-2.6); PHOSPHOROUS 5.7 mg/dL (2.3-4.7)
[2023-11-23 03:38] LABS: POTASSIUM 6.3 mmol/L (3.5-4.5)
[2023-11-23] MEDS ORDERED: Vancomycin 1.5 GM,Special Dose/Pharmacy Prepared 1.5 GM in NS 250 ML IV SCH (04:15)
[2023-11-23] MEDS ORDERED: Albuterol/Ipratropium 3 MG-0.5 MG/3 ML Neb Soln IH PRN (04:30)
[2023-11-23] MEDS ORDERED: Dextrose 50% Water 25 GM/50 ML SYRINGE IV ONE (04:45)
[2023-11-23] MEDS ORDERED: Sodium Bicarbonate 8.4% 50 MEQ/50 ML SYRINGE IV ONE (04:45)
[2023-11-23] MEDS ORDERED: Furosemide 40 MG/4 ML VIAL IV ONE (04:45)
[2023-11-23] MEDS ORDERED: Insulin Regular Human (NovoLIN R/HumuLIN R) IV ONE ×2 (04:45→23:30)
[2023-11-23] MEDS ORDERED: hydrOXYzine HCl 25 MG TAB PO PRN (05:00)
[2023-11-23] MEDS ORDERED: Dextrose 50% Water 25 GM/50 ML SYRINGE IV PRN (05:15)
[2023-11-23] MEDS ORDERED: Dextrose (Glucose) 15 GM (4 x 3.75 GM) Chewable TABLET PACK PO PRN (05:15)
[2023-11-23] MEDS ORDERED: Glucagon 1 MG VIAL IM PRN (05:15)
--- NOTE | 2023-11-23 05:32 | NUR ---
Vancomycin Initial Dosing Pharmacy Note Ordering provider: Magdaleno Alcala MD Indication/duration: Pleural effusion x 7 days Relevant comorbidities: DM, HFpEF LABS: WBC = 10.8, SCr = 1.31 Recommendation: Will draw troughs and follow levels. Loading dose: 1 gram Maintenance dose: 1 gram every 24 hours Trough goal: 15-20 ug/mL
[2023-11-23] MEDS ORDERED: Insulin Aspart (NovoLOG) SQ SCH (06:00)
--- NOTE | 2023-11-23 06:01 | NUR ---
RECEIVED REPORT FROM ER NURSE MATEO. PATIENT ARRIVED TO UNIT AROUND 0530. ALL BELONGINGS WITH PATIENT AT TIME OF TRANSFER.
[2023-11-23] MEDS ORDERED: REGLAN 5MG T5 MG/TAB PO (07:46)
[2023-11-23] MEDS ORDERED: Albuterol/Ipratropium 3 MG-0.5 MG/3 ML Neb Soln IH SCH (08:00)
[2023-11-23 08:14] LABS: BASO % 0.3 % (0.0-2.0); EOS # 0.1 K/mm3 (0.0-0.7); EOS % 1.1 % (0.0-4.0); GRAN # 8.9 K/mm3 (1.4-6.5); GRAN % 79.3 % (42.2-75.2); LYMPH # 1.2 K/mm3 (1.2-3.4); LYMPH % 10.3 % (20.0-51.0); MEAN CELL VOLUME 85 fl (80.0-100.0); MEAN CORPUSCULAR HGB CONC 31 g/dl (33.0-37.0); MONO # 0.9 K/mm3 (0.1-0.6); MONO % 8.4 % (1.7-9.3); PLATELET COUNT 296 K/mm3 (130-400); RED BLOOD COUNT 3.18 M/mm3 (4.10-5.30); REDCELL DISTRIBUTION WIDTH-CV 19.9 % (11.5-14.5)
[2023-11-23 08:19] LABS: HEMOGLOBIN 8.3 g/dl (12.5-16.0); MEAN CORPUSCULAR HEMOGLOBIN 26 pg (27-31)
[2023-11-23 08:24] LABS: INR 1.7 (0.8-3.0); PROTHROMBIN TIME 18.6 SECONDS (9.7-12.8)
[2023-11-23 08:30] LABS: CALCIUM 8.9 mg/dL (8.4-10.2); CREATININE, serum 1.26 mg/dL (0.57-1.11); POTASSIUM 5.2 mmol/L (3.5-4.5)
[2023-11-23] MEDS ORDERED: guaiFENesin ER 600 MG **** subs to guaiFENesin 200 MG PO SCH (09:00)
[2023-11-23] MEDS ORDERED: Multivitamin TAB PO SCH (09:00)
[2023-11-23] MEDS ORDERED: Ergocalciferol 1.25 MG (50,000 UNITS) CAPSULE PO SCH (09:00)
[2023-11-23] MEDS ORDERED: Bumetanide 1 MG TAB PO SCH (09:00)
[2023-11-23] MEDS ORDERED: Sertraline 100 MG TAB PO SCH (09:00)
[2023-11-23] MEDS ORDERED: COMPAZINE 110 MG/TAB PO (10:08)
[2023-11-23] MEDS ORDERED: ZOFRAN 4MG T4 MG/TAB PO (10:08)
[2023-11-23] MEDS ORDERED: Insulin Lispro (HumaLOG) SQ SCH ×2 (12:00→16:00)
[2023-11-23 12:29] LABS: CALCIUM 9.1 mg/dL (8.4-10.2); CHOLESTEROL 107 mg/dL (0-199); CREATININE, serum 1.25 mg/dL (0.57-1.11); POTASSIUM 5.4 mmol/L (3.5-4.5); TRIGLYCERIDE 213 mg/dL (0-149)
--- NOTE | 2023-11-23 13:00 | NUR ---
Report called to JAX Harrington on the medical floor. Will escort patient to room 352 via wheelchair.
--- NOTE | 2023-11-23 14:38 | NUR ---
Picutres taken of wounds.
--- NOTE | 2023-11-23 15:12 | NUR ---
ASSESSMENT COMPLETE. ORIENTED PATIENT TO ROOM, CALL LIGHT WITHIN REACH AND PROVIDED ICE WATER AND DIET SPRITE AT HER REQUEST. SHE IS REPORTING PAIN 5/10 AT TIME OF ASSESSMENT BUT INFORMED PATIENT THAT SHE WILL NOT BE DUE FOR ANY MORE ROXICODONE UNTIL ABOUT 1550, TO WHICH SHE EXPRESSED UNDERSTANDING.
[2023-11-23] MEDS ORDERED: CALCIUM GLUCONATE 1000 MG IV SCH (16:00)
[2023-11-23] MEDS ORDERED: SODIUM CHLORIDE IV SCH (16:00)
[2023-11-23] MEDS ORDERED: [UNRECOGNIZED DRUG - OTHER] IV SCH (16:00)
[2023-11-23] MEDS ORDERED: FOLIC ACID 1 MG IV SCH (16:00)
--- NOTE | 2023-11-23 16:28 | NUR ---
pulley worker met with family welfare social work professor, Julee, whom asked if patient was open to going to [facility] if needed. SW met with patient to discuss discharge planning. Patient lives in [place] with her parents, Willam and Ev. Willam P# [phone] and Ev P# [phone]. PCP is Dr. Chakraborty, pharmacy is [facility]. No issues affording medications. No DPOA-HC and patient was not interested in completing one at this time. Patient uses a walker at home. Patient is currently on oxygen but is not on oxygen at baseline. Patient reports she needs assistance with showering, cooking, getting dressed and occasionally using the restroom. Willam and Ev transport her to and from appointments. Patient reports they were waiting for [facility] to be able to accept her but would be open to [facility] if doctor was recommending this. Discharge plan: TBD possible transfer
[2023-11-23 18:24] LABS: CALCIUM 8.9 mg/dL (8.4-10.2); POTASSIUM 4.9 mmol/L (3.5-4.5)
[2023-11-23 18:45] LABS: CREATININE, serum 1.14 mg/dL (0.57-1.11)
--- NOTE | 2023-11-23 18:48 | NUR ---
PATIENT AMBULATED TO RESTROOM WITH STANDBY ASSIST AND ASSISTED BACK TO BED
--- NOTE | 2023-11-23 19:23 | NUR ---
PATIENT REPORTING NAUSEA BUT NO MEDS ORDERED UPON ADMIT TO TREAT NAUSEA SO CONTACTED PROVIDER AND RECEIVED ORDER FOR 5 MG IV COMPAZINE WHICH IS GIVEN AT THIS TIME.
--- NOTE | 2023-11-23 21:10 | NUR ---
Patient resting in bed. Rates her pain at 8/10, prn pain meds given. Assissted patient to bathroom and back to bed. Denies any other needs at this time. Assessment complete. IV in right forearm flushes easily with no complications. IJ infusing with no complications. Call light and personal items in reach. Bed in low position and bed alarm on.
[2023-11-23 22:49] LABS: CREATININE, serum 1.25 mg/dL (0.57-1.11); POTASSIUM 4.1 mmol/L (3.5-4.5)
[2023-11-24] VITALS (15 sets, daily range): BP systolic 138–181; BP diastolic 77–101; PULSE 81–92; TEMP 97.4–98.3
[2023-11-24 01:22] LABS: CALCIUM 9.2 mg/dL (8.4-10.2); CREATININE, serum 1.12 mg/dL (0.57-1.11); POTASSIUM 3.5 mmol/L (3.5-4.5)
[2023-11-24 06:24] LABS: BASO % 0.4 % (0.0-2.0); EOS # 0.2 K/mm3 (0.0-0.7); EOS % 2.7 % (0.0-4.0); GRAN # 5.1 K/mm3 (1.4-6.5); GRAN % 74.1 % (42.2-75.2); LYMPH % 13.9 % (20.0-51.0); MEAN CELL VOLUME 85 fl (80.0-100.0); MEAN CORPUSCULAR HGB CONC 31 g/dl (33.0-37.0); MEAN PLATELET VOLUME 9.6 fl (7.4-10.4); MONO # 0.6 K/mm3 (0.1-0.6); MONO % 8.5 % (1.7-9.3); PLATELET COUNT 267 K/mm3 (130-400); RED BLOOD COUNT 3.09 M/mm3 (4.10-5.30); REDCELL DISTRIBUTION WIDTH-CV 20.6 % (11.5-14.5)
[2023-11-24 06:25] LABS: HEMATOCRIT 26.2 % (37.0-47.0); HEMOGLOBIN 8.2 g/dl (12.5-16.0); MEAN CORPUSCULAR HEMOGLOBIN 27 pg (27-31)
--- NOTE | 2023-11-24 06:30 | NUR ---
Patient resting in bed. Rates her pain 8/10 at this time, prn pain meds given. Denies any needs at this time. Patient had high blood sugars all night. Call light and personal items in reach. Bed in low position and bed alarm on. Lab called with a critical glucose of 426 around 2200. Hospitalist Nicolette notified and recieved new orders for 10 units IV regular insulin now and recheck in an hour. Then use the midnight sliding scale for her blood sugar then. At 0153 patient fell in bathroom. Patient called and aide went to assist patient. Aide was in the room assisting the patient when the patient tried to sit on the toilet too early and missed then lowering herself to the ground with the help of the aide. This nurse walked in to give meds right before patient fell and witnessed the fall but was not close enought to help. Patient denied any pain at time of fall or any pain resulting from the fall later. Charge, house, and hospitalist notified of patient fall. Vital signs obtained. Assisted patient back to bed with no issues. Call light and personal items in reach. Bed in low position and bed alarm on.
[2023-11-24 06:43] LABS: CALCIUM 9.1 mg/dL (8.4-10.2); CREATININE, serum 0.95 mg/dL (0.57-1.11); MAGNESIUM 2.1 mg/dL (1.6-2.6); PHOSPHOROUS 2.9 mg/dL (2.3-4.7); POTASSIUM 3.2 mmol/L (3.5-4.5)
[2023-11-24] MEDS ORDERED: [UNRECOGNIZED DRUG - REMARK] IV SCH (15:00)
--- NOTE | 2023-11-24 15:39 | NUR ---
woolen mill utility worker was informed by JAX Batres that pt's father requested patient does NOT go to [facility] due to all her Doctor's being a [facility]. SW called Dr. Jasso who provided latest care to pt. He reports [facility] was not called yesterday. CRIS informed Dr. De Santiago of father's request to transfer to [facility]. Dr. De Santiago is discussing next steps and ordered an ex oximetry. Discharge Plan: tbd, possibly tomorrow
[2023-11-24] MEDS ORDERED: Multivitamins 1 VIAL,Folic Acid 1 MG,Thiamine 200 MG in TPN (Clinimix-E 8%/14%) 1,000 ML IV SCH (16:00)
--- NOTE | 2023-11-24 16:40 | NUR ---
PT UNABLE TO WALK FOR EXERCISE OXIMETRY. AT REST PT 82% ON RA PLACED ON 1L/NC INCREASED TO 88% INCREASED TO 2L/NC SPO2 95%. LEFT ON 2L/NC. ALSO PER LABS HGB WAS LOW WELL SO O2 NEEDED.
--- NOTE | 2023-11-24 16:45 | NUR ---
82% AT REST RA 95% ON 2L UNABLE TO AMBULATE.
--- NOTE | 2023-11-24 20:08 | NUR ---
Hospitalist Christin called at this time for patient blood pressure of 181/101 and had been running higher throughout the day. Recievied new orders for prn hydralazine.
[2023-11-24] MEDS ORDERED: hydrALAZINE 20 MG/ML 1 ML VIAL IV PRN (20:15)
--- NOTE | 2023-11-24 20:30 | NUR ---
Patient resting in bed. Rates her pain at 6/10, prn pain meds given. Assisted patient to bathroom and back to bed. Assessment complete. IV in right forearm infiltrated when flushing, IV discontinued. New IV started in left forearm. Call light and personal items in reach. Bed in low position and bed alarm on.
[2023-11-24] MEDS ORDERED: Insulin Glargine-ygfn (Lantus) SQ SCH (21:00)
[2023-11-25] VITALS (7 sets, daily range): BP systolic 134–175; BP diastolic 72–90; PULSE 82–92; TEMP 97.9–98.2
--- NOTE | 2023-11-25 06:14 | NUR ---
Patient resting in bed. Rates pain at 6/10, prn pain meds given. Assisted patient to bathroom and back to bed. No changes over night. Call light and personal items in reach. Bed in low position and bed alarm on.
[2023-11-25 06:54] LABS: BASO % 0.4 % (0.0-2.0); EOS # 0.4 K/mm3 (0.0-0.7); EOS % 5.9 % (0.0-4.0); GRAN # 4.4 K/mm3 (1.4-6.5); GRAN % 62.8 % (42.2-75.2); LYMPH # 1.4 K/mm3 (1.2-3.4); LYMPH % 19.6 % (20.0-51.0); MEAN CELL VOLUME 85 fl (80.0-100.0); MEAN CORPUSCULAR HGB CONC 31 g/dl (33.0-37.0); MEAN PLATELET VOLUME 9.4 fl (7.4-10.4); MONO # 0.8 K/mm3 (0.1-0.6); PLATELET COUNT 272 K/mm3 (130-400); RED BLOOD COUNT 3.31 M/mm3 (4.10-5.30); REDCELL DISTRIBUTION WIDTH-CV 20.5 % (11.5-14.5)
[2023-11-25 07:01] LABS: HEMATOCRIT 28.1 % (37.0-47.0); HEMOGLOBIN 8.7 g/dl (12.5-16.0); MEAN CORPUSCULAR HEMOGLOBIN 26 pg (27-31)
[2023-11-25 07:09] LABS: MAGNESIUM 1.5 mg/dL (1.6-2.6); PHOSPHOROUS 2.5 mg/dL (2.3-4.7)
--- NOTE | 2023-11-25 07:42 | NUR ---
patient has own blood glucose device. device showed a blood sugar of 58. gave 12.5mg iv dextrose. will recheck in 15 minutes.
--- NOTE | 2023-11-25 08:30 | NUR ---
Pt refused morning Bumex dose and primary nurse Medardo notified.
[2023-11-25] MEDS ORDERED: Ergocalciferol 1.25 MG (50,000 UNITS) CAPSULE PO SCH (09:00)
[2023-11-25] MEDS ORDERED: AMOXICILLIN 8751 TAB PO (09:10)
[2023-11-25] MEDS ORDERED: PROAMATINE 5MG T5 MG PO (09:11)
--- NOTE | 2023-11-25 09:23 | NUR ---
Patient awake in bed resting. Shift assessment completed. Pt is A&O x4. Zosyn infusing at 25 mL/hr into Lt forearm with no complications. Rt IJ patent with no redness, swelling, or drainage. Pt reports complaints of nausea to this student nurse. Primary nurse Medardo notified. VSS. 2L via NC in place with no irritation to bilateral nares. Assessed spine and coccyx noting redness and covered with Mepilex. Pt has complaints of pain 4/10. Primary nurse Medardo notified. Pt has no other request at this time. Call light within reach and fall precautions in place.
--- NOTE | 2023-11-25 09:24 | NUR ---
stockroom worker attended clinical rounding and was informed patient was declined for transfer to [facility]. Pt will need home oxygen. CRIS emailed [facility] oxygen DME order for pt's discharge today. CRIS was informed PT reccomends HH. SW provided Medicare.gov list of HH agencies in her area. Pt could not read the list, so SW read off the names and star ratings. Pt reports she only has Medicaid. SW provided [facility] only accept [facility]. Pt chose [facility]. CRIS faxed HH referral to [facility] who reports depending on staffing, they can look into accepting in [place]. CRIS provided to contact her father, Willam per patient's request to schedule. Discharge Plan:Home with [facility]
[2023-11-25 10:09] LABS: CALCIUM 8.5 mg/dL (8.4-10.2); CREATININE, serum 0.63 mg/dL (0.57-1.11)
[2023-11-25 10:36] LABS: POTASSIUM 2.9 mmol/L (3.5-4.5)
--- NOTE | 2023-11-25 11:24 | NUR ---
hothouse worker was notified by JAX Batres she recieved a call from Tahmina at [facility] home infusions [phone]. CRIS called Tahmina and she inquired about resumption of care orders for TPN. CRIS provided she is not sure what is needed, but offered to send discharge orders. Tahmina reports this is all she needed and was advised pt is going home. CRIS faxed these to f:[phone]. Discharge Plan: home with oxygen
--- NOTE | 2023-11-25 12:23 | NUR ---
fly worker recieved a call from [facility] who accepts pt and can see her tomorrow. Discharge Plan: Home with HH and oxygen
[2023-11-25] MEDS ORDERED: MAG-OX 400400 MG/TAB PO (13:18)
[2023-11-25] MEDS ORDERED: K-DUR20 MEQ PO (13:19)
--- NOTE | 2023-11-25 13:47 | NUR ---
This student nurse reported end of student rotation to JAX Batres. Pt is getting dressed with family in the room. Pt has no request at this time. Discontinued INT to Lt forearm with tip intact. Pt tolerated well with no complaints. Discontinued telemetry. Call light within reach.
--- NOTE | 2023-11-25 15:30 | NUR ---
PATIENT RECEIVED DISCHARGE INSTRUCTIONS INCLUDING FOLLOW UP APPOINTMENTS AND NEW MEDICATIONS. PATIENT WAS GIVEN HER HOME MEDICATIONS BACK. PATIENT DISCHARGED ITH NURSING STAFF, FATHER, AND MOTHER. NO ISSUES WITH TRANSPORT.
== END 2023-11-25 15:30 | disposition home health service (06) | DRG 189 ==
LOC: COL.ER 21:40 → ICU 11-23 02:52 → MEDICAL 11-23 02:52
PROVIDERS: Internal Medicine; Nurse Practitioner Family; Personal Emergency Response Attendant; ADMIT Internal Medicine
DX: J96.01 Acute respiratory failure with hypoxia (principal); E43 Unspecified severe protein-calorie malnutrition; J86.9 Pyothorax without fistula; J90 Pleural effusion, not elsewhere classified; B44.9 Aspergillosis, unspecified; E87.1 Hypo-osmolality and hyponatremia; E87.20 Acidosis, unspecified; I50.32 Chronic diastolic (congestive) heart failure; D64.9 Anemia, unspecified; E03.9 Hypothyroidism, unspecified; G89.29 Other chronic pain; E87.5 Hyperkalemia; E87.6 Hypokalemia; E83.42 Hypomagnesemia; K70.10 Alcoholic hepatitis without ascites; F32.A Depression, unspecified; M79.7 Fibromyalgia; I95.1 Orthostatic hypotension; R79.89 Other specified abnormal findings of blood chemistry; K74.60 Unspecified cirrhosis of liver; E11.65 Type 2 diabetes mellitus with hyperglycemia; I07.1 Rheumatic tricuspid insufficiency; E11.22 Type 2 diabetes mellitus with diabetic chronic kidney disease; N18.9 Chronic kidney disease, unspecified; Z86.16 Personal history of COVID-19; Z88.2 Allergy status to sulfonamides; Z88.8 Allergy status to other drugs, medicaments and biological substances; Z79.899 Other long term (current) drug therapy; Z79.4 Long term (current) use of insulin; Z79.890 Hormone replacement therapy; Z87.891 Personal history of nicotine dependence; Z68.20 Body mass index [BMI] 20.0-20.9, adult; Z23 Encounter for immunization
CPT/HCPCS: A9270; J0360; J0612; J0780; J1650; J1815; J1940; J2543; J3370; J3411; J7050; J7131

== ENCOUNTER 2024-01-11 08:00 | Outpatient (RCR) | payer MEDICAID ==
[2024-01-11] VITALS (9 sets, daily range): BP systolic 134–155; BP diastolic 84–112; PULSE 87–94; TEMP 98.2–98.9
[~2024-01-11 08:00] MED LIST changes: +ERGOCALCIFER50000 IU PO; +FERRO-TIME325 MG PO; +INSHUMULINR SQ; +K-DUR20 MEQ PO; +MUCINEX 60600 MG/TA1 PO; +NS 250 ML IV SCH; +REGLAN 5MG T5 MG/TAB PO
[2024-01-11] MEDS ORDERED: VITAMIN D 50,1.25 MG PO (08:44)
[2024-01-11] MEDS ORDERED: ILOTYCIN5 MG/GM OP (08:46)
[2024-01-11] MEDS ORDERED: hydrOXYzine HCl 25 MG TAB PO PRN (10:45)
[2024-01-11] MEDS ORDERED: oxyCODONE 5 MG TAB PO PRN (10:45)
--- NOTE | 2024-01-11 12:56 | NUR ---
PT TOLERATED TRANSFUSION WELL. VS REMAINED WITHIN NORMAL LIMITS AND PT FREE FROM ACUTE CONCERNS AND COMPLAINTS UPON DISCHARGE. PT ASSISTED TO MAIN LOBBY VIA WHEELCHAIR AND MONET PORT WAS FLUSHED WITH NORMAL SALINE. PT ACCOMPANIED BY FATHER UPON DISCHARGE.
== END 2024-01-11 13:20 | disposition home or self-care (01) ==
LOC: EUO 08:00
DX: D64.9 Anemia, unspecified (principal); R58 Hemorrhage, not elsewhere classified
CPT/HCPCS: J7050; P9016